=== PATIENT | female | born 1980 | race Caucasian/White ===

== ENCOUNTER 2022-05-19 10:58 | Emergency (ER) | payer BC ==
[~2022-05-19] VITALS: Ht 165.1 cm; Wt 136.1 kg
[2022-05-19 11:04] VITALS: BP_SYST 142
--- NOTE | 2022-05-19 11:07 | NUR ---
Patient to ER bed H1 to gown for evaluation. Side rails up. Report given to ESSIE HUMMEL.
[2022-05-19] MEDS ORDERED: KETOROLAC TROMETHAMINE 30 MG VIAL IVP ONE ×2 (11:15→11:45)
[2022-05-19] MEDS ORDERED: NACL 0.9% 1,000 ML IV ONE ×2 (11:15→12:45)
--- NOTE | 2022-05-19 11:18 | NUR ---
ER DR. MAX EXAMINING PT
[2022-05-19] MEDS ORDERED: ONDANSETRON HCL 4 MG/2 ML VIAL IVP ONE ×2 (11:30→11:45)
[2022-05-19] MEDS ORDERED: MORPHINE 4 MG INJ. 4 MG/ML VIAL IVP ONE (12:00)
[2022-05-19 12:01] LABS: BASOPHILS # (AUTO) 0.2 K/uL (0.0-0.2); BASOPHILS % (AUTO) 1.3 % (0.0-2.0); EOSINOPHILS # (AUTO) 0.2 K/uL (0.0-0.4); EOSINOPHILS % (AUTO) 1.4 % (0.0-4.0); HEMATOCRIT 42.1 % (36-48); HEMOGLOBIN 13.9 g/dL (12.0-16.0); LYMPHOCYTES # (AUTO) 5.1 K/uL (1.0-5.5); LYMPHOCYTES % (AUTO) 31.2 % (20.5-51.5); MEAN CORPUSCULAR HEMOGLOBIN 29 pg (27-31); MEAN CORPUSCULAR HGB CONC 33 % (32-36); MEAN CORPUSCULAR VOLUME 87 fL (79.0-98.0); MONOCYTES # (AUTO) 0.7 K/uL (0.0-1.0); MONOCYTES % (AUTO) 4.1 % (1.7-9.3); NEUTROPHILS # (AUTO) 10.1 K/uL (1.8-7.7); PLATELET COUNT (AUTO) 362 K/uL (130-430); RED BLOOD CELL COUNT(AUTO) 4.86 MIL/uL (4.2-6.2); WHITE BLOOD COUNT (AUTO) 16.3 K/uL (4.8-10.8)
--- NOTE | 2022-05-19 12:06 | NUR ---
PT GOING TO CT SCAN. MEDICATED ORDERED FOR PAIN.
[2022-05-19 12:27] LABS: CALCIUM 9.9 mg/dL (8.4-11.0); CREATININE 0.95 mg/dL (0.55-1.30)
[2022-05-19 12:31] LABS: ALBUMIN 3.8 g/dL (3.4-4.8); TOTAL BILIRUBIN 0.3 mg/dL (0.0-1.0)
[2022-05-19] MEDS ORDERED: TAMSULOSIN HCL 0.4 MG CAP PO ONE (12:45)
[2022-05-19] MEDS ORDERED: cefTRIAXone 1 GM IVPB PREMIX 50 ML IV ONE (12:45)
[2022-05-19 13:20] LABS: BILIRUBIN,URINE NEGATIVE (NEGATIVE); BLOOD, URINE 3+ (NEGATIVE); COLOR,URINE YELLOW (YELLOW); GLUCOSE,URINE NEGATIVE (NEGATIVE); KETONES,URINE NEGATIVE (NEGATIVE); LEUKOCYTE ESTERASE ,URINE 1+ (NEGATIVE); NITRITE, URINE NEGATIVE (NEGATIVE); PH,URINE 5.5 (5.0-8.0); PROTEIN URINE NEGATIVE (NEGATIVE); UROBILINOGEN,URINE 0.2 (0.2-1.0)
[2022-05-19 13:23] LABS: CLARITY/URINE HAZY (CLEAR)
[2022-05-19 13:28] LABS: BACTERIA,URINE MODERATE /HPF (None Seen); MUCUS,URINE 1+ /LPF (None Seen)
[2022-05-19] MEDS ORDERED: HYDR-3917 PO (14:50)
[2022-05-19] MEDS ORDERED: FLUC200T PO (14:50)
[2022-05-19] MEDS ORDERED: IBUP-1970 PO (14:50)
[2022-05-19] MEDS ORDERED: CEPH-548 PO (14:50)
[2022-05-19] MEDS ORDERED: TAMS-11 PO (14:52)
[2022-05-19 15:09] VITALS: BP_SYST 137
--- NOTE | 2022-05-19 15:09 | NUR ---
Patient given written and verbal discharge instructions and verbalizes understanding. ER MD discussed with patient the results and treatment provided. Patient in stable condition. ID arm band removed. Rx of CEPHALEXIN, DIFLUXAN, NORCO, IBUPROFEN AND FLOMAX given. Patient educated on pain management and to follow up with PMD. Pain Scale 0/10. Opportunity for questions provided and answered. Medication side effect fact sheet provided.
--- NOTE | 2022-05-19 17:16 | NUR ---
Note undone in EDM - 05/19/22 at 1717 by [email or web address] Patient given written and verbal discharge instructions and verbalizes understanding. ER discussed with patient the results and treatment provided. Patient in stable condition. ID arm band removed. Rx of CEPHALEXIN, DIFLUXAN, NORCO, IBUPROFEN AND FLOMAX given. Patient educated on pain management and to follow up with PMD. Pain Scale 0/10. Opportunity for questions provided and answered. Medication side effect fact sheet provided.
== END 2022-05-19 15:09 | disposition home or self-care (01) ==
LOC: SED 10:58
DX: N39.0 Urinary tract infection, site not specified (principal); N13.0 Hydronephrosis with ureteropelvic junction obstruction; I10 Essential (primary) hypertension; E11.9 Type 2 diabetes mellitus without complications; Z87.442 Personal history of urinary calculi; Z87.891 Personal history of nicotine dependence; Z79.899 Other long term (current) drug therapy
CPT/HCPCS: 99285; 74176; 96365; 96375; 96361; 80053; 81000; 83690; 85025; 87086; 36415; 76376; J0696; J1885; J2405; J2270; J7030